=== PATIENT | female | born 1935 | race Caucasian/White ===

== ENCOUNTER 2022-04-23 11:01 | Outpatient (REF) | payer SELFPAY ==
[2022-04-21 06:23] LABS: MANUAL DIFF FLAG NO
[2022-04-21 06:50] LABS: Basophils Absolute Auto 0.1 X10*3/uL (0.0-0.2); Basophils Percent Auto 0.4 % (0-2); Eosinophils Absolute Auto 0.4 X10*3/uL (0.0-0.4); Eosinophils Percent Auto 2.3 % (0-4); Hematocrit 29.7 % (37.0-47.0); Hemoglobin 9.3 g/dl (12.0-16.0); Imm Gran Abs Auto 0.12 X10*3/uL (0.00-0.03); Imm Gran Pct Auto 0.7 % (0.0-0.4); Lymphocytes Absolute Auto 1.5 X10*3/uL (1.2-4.9); Lymphocytes Percent Auto 9.2 % (20-40); Mean Corpuscular HGB Conc 31.3 g/dl (31.0-35.0); Mean Corpuscular Hemoglobin 34.1 pg (27.0-33.0); Mean Corpuscular Volume 108.8 fL (80.0-98.0); Mean Platelet Volume 10.3 fL (9.4-12.3); Monocytes Absolute Auto 1.1 X10*3/uL (0.1-1.2); Monocytes Percent Auto 6.4 % (2-11); Neutrophils Absolute Auto 13.2 x10*3/uL (2.0-8.3); Platelet Count 327 X10*3/uL (160-400); Red Blood Count 2.73 X10*6/uL (4.20-5.50); Red Cell Distribution Width 19.4 % (11.0-16.0); White Blood Count 16.3 X10*3/uL (4.8-10.8)
[2022-04-21 08:08] LABS: Anion Gap 22 (12-20); Blood Urea Nitrogen 59 mg/dL (9-16); Calcium 8.5 mg/dL (8.4-10.2); Carbon Dioxide 24 mmol/L (22-29); Chloride 100 mmol/L (96-108); Estimated Glomerular Filt Rate 8; Glucose Random 88 mg/dL (60-115); Sodium 141 mmol/L (135-145)
== END 2022-04-23 11:02 | disposition home or self-care (01) ==
LOC: HO.MMNH2L 11:01
PROVIDERS: Visit Provider Family Medicine
DX: N18.6 End stage renal disease (principal); D63.1 Anemia in chronic kidney disease; C18.9 Malignant neoplasm of colon, unspecified
CPT/HCPCS: 36415; 80048; 85025

== ENCOUNTER 2022-05-18 05:00 | Outpatient (REF) | payer MEDICARE, SELFPAY | END 2022-05-18 05:01 | disposition home or self-care (01) | LOC: HO.MMNH2L 05:00 | PROVIDERS: Visit Provider Family Medicine | DX: Z13.89 Encounter for screening for other disorder (principal) ==

== ENCOUNTER 2022-07-01 08:14 | Outpatient (RCR) | payer MEDICARE, SELFPAY | END 2022-07-06 14:10 | disposition home or self-care (01) | LOC: HO.WCC 08:14 | PROVIDERS: PCP Family Medicine; Referring Provider Surgery; Visit Provider Surgery | DX: L89.154 Pressure ulcer of sacral region, stage 4 (principal); N18.6 End stage renal disease; Z99.2 Dependence on renal dialysis | CPT/HCPCS: 99213 ==